=== PATIENT | male | born 1995 | race Caucasian/White ===

== ENCOUNTER 2019-06-12 06:15 | Emergency (ER) | payer SELFPAY ==
--- NOTE | 2019-06-12 08:34 | RAD ---
LEFT WRIST 3 VIEWS: Date: 06/12/19 INDICATION: History of hitting a dresser 8 hours ago with left wrist pain. COMPARISON: None. FINDINGS: No acute fracture or subluxation is evident. Carpal alignment appears within normal limits. IMPRESSION: No acute osseous abnormality. POS: [facility]
--- NOTE | 2019-06-12 08:35 | RAD ---
LEFT HAND 3 VIEWS: DATE: 06/12/19 INDICATION: Hit dresser 8 hours ago with left hand pain. COMPARISON: None. FINDINGS: No acute fracture or subluxation is evident. No radiopaque foreign body is noted. IMPRESSION: No acute osseous abnormality. POS: [facility]
== END 2019-06-12 07:28 | disposition home or self-care (01) ==
LOC: ERS 06:15
DX: S60.222A Contusion of left hand, initial encounter (principal); W22.8XXA Striking against or struck by other objects, initial encounter